=== PATIENT | female | born 1990 | race Caucasian/White ===

== ENCOUNTER 2017-01-04 10:09 | Emergency (ER) | payer OTHER ==
[~2017-01-04] VITALS: Ht 172.7 cm; Wt 63.5 kg
[2017-01-04 12:40] VITALS: BP 114/65
== END 2017-01-04 12:52 | disposition home or self-care (01) ==
LOC: ER 10:09
DX: M79.671 Pain in right foot (principal); Z88.1 Allergy status to other antibiotic agents; Z88.2 Allergy status to sulfonamides; X58.XXXA Exposure to other specified factors, initial encounter; Y93.89 Activity, other specified; Y92.89 Other specified places as the place of occurrence of the external cause; Y99.8 Other external cause status